=== PATIENT | female | born 1990 | race Caucasian/White ===

== ENCOUNTER 2017-12-24 09:39 | Emergency (ER) | payer SELFPAY ==
[2017-12-24] MEDS ORDERED: IBUPROFEN 400 MG TAB ONE (11:31)
--- NOTE | 2017-12-24 12:24 | ER ---
Nurse's Notes [facility] Name: Aimee Feng Age: 27 yrs Sex: Female : 1990 Arrival Date: 12/24/2017 Time: 09:43 Bed 19 Private MD: Diagnosis: Infectious mononucleosis Presentation: 12/24 10:01 Presenting complaint: Patient states: Right ear pain x 3-4 days ago, right sided neck hb pain, swelling, and difficulty swallowing x 2 days. Transition of care: patient was not received from another setting of care. Onset of symptoms is unknown. Care prior to arrival: None. 10:01 Method Of Arrival: Ambulatory hb 10:01 Acuity: [place] 3 hb Triage Assessment: :43 General: Appears in no apparent distress. uncomfortable, Behavior is calm, cooperative, hj appropriate for age. Pain: Complains of pain in right ear. EENT: Reports pain. 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 - Social history:: Smoking status: Patient/guardian denies using tobacco. Screenin:42 Abuse screen: Denies threats or abuse. Denies injuries from another. Nutritional hj screening: No deficits noted. Tuberculosis screening: No symptoms or risk factors identified. Fall Risk None identified. Assessment: 11:21 Reassessment: see wilman for assessment;. hj 12:56 Reassessment: Patient and/or family updated on plan of care and expected duration. Pain hj level reassessed. Patient is alert, oriented x 3, equal unlabored respirations, skin warm/dry/pink. awaiting ride from [employer]; Patient states feeling better. Patient states symptoms have improved. Vital Signs: 10:04 BP 154 / 106; Pulse 68; Resp 16; Temp 98.9; Pulse Ox 100% on R/A; Weight 68.04 kg; hb Height 5 ft. 6 in. (167.64 cm); Pain 7/10; 10:04 Body Mass Index 24.21 (68.04 kg, 167.64 cm) hb ED Course: :43 Patient arrived in ED. as 10:03 Triage completed. hb 10:04 Arm band placed on right wrist. hb 10:40 [facility] pm1 10:40 Dominick Hill MD is Attending Physician. pm1 10:42 Hi Gordillo RN is Primary Nurse. hj 10:43 Patient has correct armband on for positive identification. Bed in low position. Call light in reach. 11:21 Flu Sent. hj 11:21 Strep Sent. hj 11:21 [place] Screen Profile Sent. hj 11:30 Initial lab(s) drawn, by ct, sent to lab. Inserted saline lock: 22 gauge in right hj antecubital area, using aseptic technique. Blood collected. 12:54 No provider procedures requiring assistance completed. IV discontinued, intact, hj bleeding controlled, No redness/swelling at site. Pressure dressing applied. Administered Medications: 11:05 Drug: Ibuprofen 800 mg Route: PO; hj 11:20 Follow up: Response: No adverse reaction hj Outcome: 12:23 Discharge ordered by . pm1 12:54 Discharged to home ambulatory. hj 12:54 Condition: stable 12:54 Discharge instructions given to patient, Instructed on discharge instructions, follow up and referral plans. Demonstrated understanding of instructions, follow-up care. 12:57 Patient left the ED. hj Signatures: Maggie Pendleton Henry, ROSA RN Braber Mc NP ACCOUNTS RECEIVABLE MANAGER pm1 Lupe Benoit RN RN hb
--- NOTE | 2017-12-24 12:24 | EDPHYS ---
Physician Documentation [facility] Name: Aimee Feng Age: 27 yrs Sex: Female : 1990 Arrival Date: 12/24/2017 Time: 09:43 Bed 19 Private MD: ED Physician Dominick Hill HPI: 12/24 12:00 This 27 yrs old Female presents to ER via Ambulatory with complaints of Ear pm1 Pain, Neck Swelling. 12:00 The patient presents with pain, right ear. The complaints affect the right ear. Onset: pm1 The symptoms/episode began/occurred 2 day(s) ago. Modifying factors: The symptoms are alleviated by nothing, the symptoms are aggravated by touching. Associated signs and symptoms: Pertinent positives: neck pain and sore throat, Pertinent negatives: fever, nausea, rhinorrhea, shortness of breath, vomiting. Severity of symptoms: in the emergency department the symptoms are worse. The patient has not experienced similar symptoms in the past. 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 - Social history:: Smoking status: Patient/guardian denies using tobacco. ROS: 12:00 Constitutional: Negative for fever, chills, and weight loss, Eyes: Negative for injury, pm1 pain, redness, and discharge, Neck: Negative for injury, pain, and swelling, Cardiovascular: Negative for chest pain, palpitations, and edema, Respiratory: Negative for shortness of breath, cough, wheezing, and pleuritic chest pain, Abdomen/GI: Negative for abdominal pain, nausea, vomiting, diarrhea, and constipation. 12:00 Back: Negative for injury and pain, MS/Extremity: Negative for injury and deformity, Skin: Negative for injury, rash, and discoloration, Neuro: Negative for headache, weakness, numbness, tingling, and seizure. 12:00 ENT: Positive for sore throat. 12:00 Neck: Positive for swollen nodes, tenderness. Exam: 12:00 Constitutional: This is a well developed, well nourished patient who is awake, alert, pm1 and in no acute distress. Head/Face: Normocephalic, atraumatic. Eyes: Pupils equal round and reactive to light, extra-ocular motions intact. Lids and lashes normal. Conjunctiva and sclera are non-icteric and not injected. Cornea within normal limits. Periorbital areas with no swelling, redness, or edema. 12:00 Chest/axilla: Normal chest wall appearance and motion. Nontender with no deformity. No lesions are appreciated. Cardiovascular: Regular rate and rhythm with a normal S1 and S2. No gallops, murmurs, or rubs. Normal PMI, no JVD. No pulse deficits. Respiratory: Lungs have equal breath sounds bilaterally, clear to auscultation and percussion. No rales, rhonchi or wheezes noted. No increased work of breathing, no retractions or nasal flaring. Abdomen/GI: Soft, non-tender, with normal bowel sounds. No distension or tympany. No guarding or rebound. No evidence of tenderness throughout. Back: No spinal tenderness. No costovertebral tenderness. Full range of motion. Skin: Warm, dry with normal turgor. Normal color with no rashes, no lesions, and no evidence of cellulitis. MS/ Extremity: Pulses equal, no cyanosis. Neurovascular intact. Full, normal range of motion. Neuro: Awake and alert, GCS 15, oriented to person, place, time, and situation. Cranial nerves II-XII grossly intact. Motor strength 5/5 in all extremities. Sensory grossly intact. Cerebellar exam normal. Normal gait. 12:00 ENT: External ear(s): are unremarkable, Ear canal(s): are normal, TM's: are normal, Nose: is normal, Mouth: is normal, Posterior pharynx: is normal. 12:00 Neck: External neck: is normal, Lymph nodes: lymphadenopathy is appreciated, posterior cervical nodes, post auricular nodes, right side. Vital Signs: 10:04 BP 154 / 106; Pulse 68; Resp 16; Temp 98.9; Pulse Ox 100% on R/A; Weight 68.04 kg; hb Height 5 ft. 6 in. (167.64 cm); Pain 7/10; 10:04 Body Mass Index 24.21 (68.04 kg, 167.64 cm) hb MDM: 10:43 Patient medically screened. pm1 12:22 Data reviewed: vital signs. Data interpreted: Pulse oximetry: on room air is 100 %. pm1 Interpretation: normal. Counseling: I had a detailed discussion with the patient and/or guardian regarding: the historical points, exam findings, and any diagnostic results supporting the discharge/admit diagnosis, lab results, the need for outpatient follow up, to return to the emergency department if symptoms worsen or persist or if there are any questions or concerns that arise at home. 12/24 11:04 Order name: [place] Screen Profile; Complete Time: 12:22 pm1 12/24 11:04 Order name: Strep; Complete Time: 12:22 pm1 12/24 11:04 Order name: Flu; Complete Time: 12:22 pm1 12/24 11:50 Order name: Throat Culture EDIN Administered Medications: 11:05 Drug: Ibuprofen 800 mg Route: PO; 11:20 Follow up: Response: No adverse reaction Disposition: 18:38 Co-signature as Attending Physician, Dominick Hill MD. rn Disposition: 12/24/17 12:23 Discharged to Home. Impression: Infectious mononucleosis. - Condition is Stable. - Discharge Instructions: Infectious Mononucleosis. - Medication Reconciliation Form, Thank You Letter, Antibiotic Education form. - Follow up: Emergency Department; When: As needed; Reason: Worsening of condition. Follow up: Private Physician; When: 2 - 3 days; Reason: Recheck today's complaints, Continuance of care, Re-evaluation by your physician. - Problem is new. - Symptoms have improved. Signatures: Dispatcher [employer] EDMS Dominick Hill MD MD rn Joaquin, Henry, RN RN hj Marinas, Patrick, NP YARD ENGINEER pm1 Lupe Benoit RN RN
== END 2017-12-24 12:57 | disposition home or self-care (01) ==
LOC: ER 09:39
DX: B27.90 Infectious mononucleosis, unspecified without complication (principal)
CPT/HCPCS: 36415; 86308; 87070; 87081; 87804; 99283